=== PATIENT | male | born 1940 | race Caucasian/White ===

== ENCOUNTER 2025-06-16 13:14 | Emergency (ER) | payer MEDICARE, OTHER ==
[~2025-06-16] VITALS: Ht 182.9 cm; Wt 79.4 kg
[~2025-06-16 13:14] MED LIST: SIMV20TA2 PO
[2025-06-16 15:01] VITALS: BP 130/69; O2SAT 98
== END 2025-06-16 14:30 | disposition home or self-care (01) ==
LOC: ER 13:14
DX: S80.02XA Contusion of left knee, initial encounter (principal); S80.01XA Contusion of right knee, initial encounter; S80.211A Abrasion, right knee, initial encounter; S09.8XXA Other specified injuries of head, initial encounter; E78.5 Hyperlipidemia, unspecified; Z79.899 Other long term (current) drug therapy; Z88.7 Allergy status to serum and vaccine; W01.0XXA Fall on same level from slipping, tripping and stumbling without subsequent striking against object, initial encounter; Y93.89 Activity, other specified; Y92.89 Other specified places as the place of occurrence of the external cause; Y99.8 Other external cause status
CPT/HCPCS: 70450; A4606; A4663